=== PATIENT | female | born 1965 | race Caucasian/White ===

== ENCOUNTER → 2019-05-22 | Outpatient (CLI) | payer OTHER ==
[~2019-05-22] MED LIST: Advil200 M1 PO; HYDR1TAB94 PO
[2019-05-24 15:06] LABS: HPV 16 Negative (Negative); HPV 18 Negative (Negative); HPV OTHER HR TYPES Negative (Negative)
== END | disposition home or self-care (01) ==
LOC: LAB 17:35 → LAB SHORT 17:35
PROVIDERS: Nurse Practitioner Women's Health
DX: Z12.4 Encounter for screening for malignant neoplasm of cervix (principal); Z91.89 Other specified personal risk factors, not elsewhere classified
CPT/HCPCS: 87624; G0123

== ENCOUNTER 2019-11-01 07:55 | Day surgery (SDC) | payer OTHER ==
[~2019-11-01] VITALS: Ht 157.5 cm; Wt 85.1 kg
== END 2019-11-01 10:15 | disposition home or self-care (01) ==
LOC: ORSCSDS 07:55
PROVIDERS: Internal Medicine Gastroenterology
PROC: 0DBK8ZX Excision of Ascending Colon, Via Natural or Artificial Opening Endoscopic, Diagnostic (ICD-10-PCS; principal; 2019-11-01 09:30)
DX: Z12.11 Encounter for screening for malignant neoplasm of colon (principal); Z86.010 Personal history of colon polyps; D12.2 Benign neoplasm of ascending colon; K57.30 Diverticulosis of large intestine without perforation or abscess without bleeding; B18.2 Chronic viral hepatitis C; Z87.891 Personal history of nicotine dependence; Z79.899 Other long term (current) drug therapy
CPT/HCPCS: 88305; J2704; J7120

== ENCOUNTER → 2019-11-01 | Outpatient (CLI) | payer OTHER ==
[~2019-11-01] MED LIST changes: +CLIMARA1 EACH; +PROG100
== END | disposition home or self-care (01) ==
LOC: LAB 16:00 → LAB SHORT 16:00
DX: L02.429 Furuncle of limb, unspecified (principal)
CPT/HCPCS: 87070

== ENCOUNTER → 2025-02-16 | Outpatient (CLI) | payer OTHER ==
[2025-02-20 17:04] LABS: HPV HIGH RISK BY TMA Not Detected; HPV SOURCE Cervical
== END ==
LOC: LAB SHORT 18:40 → LAB 18:40
PROVIDERS: Nurse Practitioner Family
DX: Z01.419 Encounter for gynecological examination (general) (routine) without abnormal findings (principal)
CPT/HCPCS: 87624; G0123

== ENCOUNTER 2025-02-23 10:22 | Day surgery (SDC) | payer OTHER ==
[~2025-02-23] VITALS: Ht 157.5 cm; Wt 81.5 kg
[2025-02-23] MEDS ORDERED: Calcium Carbon500 MG (10:36)
[2025-02-23] MEDS ORDERED: ALBU90OI (10:36)
[2025-02-23] MEDS ORDERED: Bentyl20 MG (10:36)
[2025-02-23] MEDS ORDERED: MULVITA (10:37)
[2025-02-23] MEDS ORDERED: LACT (10:37)
[2025-02-23] MEDS ORDERED: Adipex-P37.5 M1 (10:37)
[2025-02-23] MEDS ORDERED: ALLEGRA ALLERG180 MG (10:40)
[2025-02-23] MEDS ORDERED: Lactated Ringer's 1,000 ML IV ONE ×2 (10:42→11:31)
[2025-02-23] MEDS ORDERED: propofoL 50 ML IV ONE (10:42)
[2025-02-23 12:24] VITALS: BP 120/80
== END 2025-02-23 12:24 | disposition home or self-care (01) ==
LOC: ORSCSDS 10:22
PROVIDERS: Internal Medicine Gastroenterology
PROC: 0DJD8ZZ Inspection of Lower Intestinal Tract, Via Natural or Artificial Opening Endoscopic (ICD-10-PCS; principal; 2025-02-23 12:00)
DX: Z12.11 Encounter for screening for malignant neoplasm of colon (principal); Z86.0101 Personal history of adenomatous and serrated colon polyps; Z86.19 Personal history of other infectious and parasitic diseases; J44.9 Chronic obstructive pulmonary disease, unspecified; Z79.899 Other long term (current) drug therapy
CPT/HCPCS: J2704; J7120